=== PATIENT | female | born 1985 | race Two or more races ===

== ENCOUNTER 2023-10-18 09:47 | Outpatient (CLI) | payer OTHER | END 2023-10-18 09:48 | disposition home or self-care (01) | LOC: PRENATAL 09:47 | PROVIDERS: ATTEND Obstetrics & Gynecology Maternal & Fetal Medicine | DX: O35.3XX0 Maternal care for (suspected) damage to fetus from viral disease in mother, not applicable or unspecified (principal); O44.00 Complete placenta previa NOS or without hemorrhage, unspecified trimester; O99.891 Other specified diseases and conditions complicating pregnancy; Z3A.21 21 weeks gestation of pregnancy ==

== ENCOUNTER 2023-11-30 09:45 | Inpatient (IN) | payer OTHER ==
[~2023-11-30] VITALS: Ht 165.1 cm; Wt 3.6 kg
[2023-11-30] MEDS ORDERED: FOLIC (10:41)
[2023-11-30] MEDS ORDERED: CHILDREN'S ASPI81 MG (10:41)
[2023-11-30 10:47] LABS: HEMATOCRIT 36.4 % (36.0-45.00); HEMOGLOBIN 12.6 g/dL (12.0-15.00); MEAN CORPUSCULAR HEMOGLOBIN 32.5 pg (27.00-32.0); MEAN CORPUSCULAR HGB CONC 34.6 g/dl (32.0-36.0); PLATELET COUNT 212 K/uL (150-450); RED BLOOD COUNT 3.87 M/uL (4.00-6.00); RED CELL DISTRIBUTION WIDTH 13.7 % (11.5-14.5)
[2023-11-30 10:48] LABS: PH,URINE 6.5 (5.0-8.0); URINE APPEARANCE Clear; URINE BILIRRUBIN Negative (NEGATIVE); URINE BLOOD Negative; URINE COLOR Yellow; URINE GLUCOSE Negative (NEGATIVE); URINE LEUKOCYTE Moderate; URINE NITRATE Negative; URINE PROTEIN Negative (NEGATIVE); URINE UROBILINOGEN 0.2 E.U./dl
[2023-11-30 10:49] LABS: URINE BACTERIA 1831.9 uL (0.0-1933); URINE EPITHELIAL CELLS 85.4 uL (0.0-38.8); URINE RBC 3.5 uL (0.0-20.8); URINE WBC 22.4 uL (0.0-23.2)
[2023-11-30 11:30] LABS: INR 0.95; PARTIAL THROMBOPLASTIN TIME 26.3 SECONDS (22.0-34.0)
[2023-11-30 11:33] LABS: ALBUMIN 3.1 gm/dL (3.4-5.0); BILIRUBIN TOTAL 0.37 mg/dL (0.3-1.2); CALCIUM 9.5 mg/dL (8.5-10.1); CREATININE SERUM 0.51 mg/dL (0.55-1.02); GFR 135.69; GLOBULINA 3.5 G/DL (2.4-3.5); POTASSIUM 4.2 mEq/L (3.5-5.1); TOTAL PROTEIN 6.6 gm/dL (6.4-8.2)
[2023-12-02] MEDS ORDERED: PRENATAL TABLE1 EAC4 PO (08:22)
[2023-12-02 21:56] LABS: HEMATOCRIT 34.3 % (36.0-45.00); HEMOGLOBIN 11.8 g/dL (12.0-15.00); MEAN CELL VOLUME 92.9 fL (80.00-100.00); MEAN CORPUSCULAR HEMOGLOBIN 31.9 pg (27.00-32.0); MEAN CORPUSCULAR HGB CONC 34.4 g/dl (32.0-36.0); PLATELET COUNT 184 K/uL (150-450); RED BLOOD COUNT 3.69 M/uL (4.00-6.00); RED CELL DISTRIBUTION WIDTH 13.9 % (11.5-14.5)
[2023-12-05] MEDS ORDERED: Tylenol #3 PO (07:54)
[2023-12-05] MEDS ORDERED: NAPR500T14 PO (07:54)
== END 2023-12-05 12:58 | disposition home or self-care (01) | DRG 785 ==
LOC: LDR 12-02 07:53 → OB/GYN 12-02 09:42 → LDR 12-02 09:45 → OB/GYN 12-05 12:58
PROVIDERS: Obstetrics & Gynecology; ADMIT Obstetrics & Gynecology; ATTEND Obstetrics & Gynecology
PROC: 0UB70ZZ Excision of Bilateral Fallopian Tubes, Open Approach (ICD-10-PCS; 2023-12-02)
PROC: 4A1HXCZ Monitoring of Products of Conception, Cardiac Rate, External Approach (ICD-10-PCS; 2023-12-02)
PROC: 10D00Z1 Extraction of Products of Conception, Low, Open Approach (ICD-10-PCS; principal; 2023-12-02 10:30)
DX: O34.211 Maternal care for low transverse scar from previous cesarean delivery (principal); O99.824 Streptococcus B carrier state complicating childbirth; Z3A.39 39 weeks gestation of pregnancy; Z37.0 Single live birth; Z20.822 Contact with and (suspected) exposure to COVID-19; Z30.2 Encounter for sterilization

== ENCOUNTER 2023-12-13 00:56 | Emergency (ER) | payer OTHER ==
[~2023-12-13] VITALS: Ht 165.1 cm; Wt 84.4 kg
[~2023-12-13 00:56] MED LIST: CHILDREN'S ASPI81 MG; FOLIC; NAPR500T14 PO; PRENATAL TABLE1 EAC4 PO; Tylenol #3 PO
[2023-12-13] MEDS ORDERED: NAPROXEN500 MG PO (01:01)
[2023-12-13] MEDS ORDERED: CLINDAMYCIN PHOSPHATE 150 MG/ML (600mg) IV STA (01:38)
[2023-12-13] MEDS ORDERED: 0.9 % SODIUM CHLORIDE 1,000 ML IV STA (01:40)
[2023-12-13 02:03] LABS: PH,URINE 6.5 (5.0-8.0); URINE APPEARANCE Cloudy; URINE BILIRRUBIN Negative (NEGATIVE); URINE BLOOD Large; URINE COLOR Yellow; URINE GLUCOSE Negative (NEGATIVE); URINE LEUKOCYTE Large; URINE NITRATE Negative; URINE PROTEIN 30 (NEGATIVE)
[2023-12-13 02:06] LABS: URINE BACTERIA 1858.3 uL (0.0-1933); URINE EPITHELIAL CELLS 32.6 uL (0.0-38.8); URINE RBC 40.2 uL (0.0-20.8); URINE WBC 367.1 uL (0.0-23.2)
[2023-12-13 02:06] LABS: HEMATOCRIT 32.1 % (36.0-45.00); HEMOGLOBIN 10.8 g/dL (12.0-15.00); MEAN CELL VOLUME 92.3 fL (80.00-100.00); MEAN CORPUSCULAR HGB CONC 33.6 g/dl (32.0-36.0); PLATELET COUNT 376 K/uL (150-450); RED BLOOD COUNT 3.48 M/uL (4.00-6.00); RED CELL DISTRIBUTION WIDTH 13.5 % (11.5-14.5)
[2023-12-13 03:38] LABS: ALBUMIN 2.8 gm/dL (3.4-5.0); BILIRUBIN TOTAL 0.32 mg/dL (0.3-1.2); CALCIUM 8.9 mg/dL (8.5-10.1); CREATININE SERUM 0.62 mg/dL (0.55-1.02); GFR 108.31; GLOBULINA 4.5 G/DL (2.4-3.5); POTASSIUM 3.88 mEq/L (3.5-5.1); TOTAL PROTEIN 7.3 gm/dL (6.4-8.2)
[2023-12-13] MEDS ORDERED: VANCOMYCIN HCL 1,000 MG VIAL IV STA (06:03)
[2023-12-13] MEDS ORDERED: GENTAMICIN SULFATE 40 MG/ML VIAL IV STA (06:07)
== END 2023-12-13 11:43 | disposition home or self-care (01) ==
LOC: ER 00:56
PROVIDERS: General Practice
DX: O86.01 Infection of obstetric surgical wound, superficial incisional site (principal); Z88.0 Allergy status to penicillin